=== PATIENT | male | born 1975 | race Caucasian/White ===

== ENCOUNTER 2018-03-16 18:49 | Inpatient (IN) | payer OTHER, MEDICAID ==
[~2018-03-16] VITALS: Ht 177.8 cm; Wt 103.0 kg
[2018-03-16 02:00] VITALS: BP 150/99
[2018-03-16 19:05] VITALS: BP 171/123
[2018-03-16] MEDS ORDERED: LEXAPRO20 MG PO (19:10)
[2018-03-16] MEDS ORDERED: PRINIVIL20 MG PO (19:10)
[2018-03-16] MEDS ORDERED: TRAZODONE HCL50 MG PO (19:10)
[2018-03-16] MEDS ORDERED: HYDROXYZINE HCL25 M1 PO (19:11)
[2018-03-16] MEDS ORDERED: OMEPRAZOLE20 M1 PO (19:11)
[2018-03-16] MEDS ORDERED: LIPITOR 20 MG T20 M1 PO (19:11)
[2018-03-16 19:44] LABS: ABSOLUTE BASOPHILS 0.1 thou/uL (0.0-0.2); ABSOLUTE EOSINOPHILS 0.1 thou/uL (0.0-0.7); ABSOLUTE LYMPHOCYTES 1.9 thou/uL (0.8-5.3); ABSOLUTE MONOCYTES 0.8 thou/uL (0.0-1.2); ABSOLUTE NEUTROPHILS 10.1 thou/uL (1.6-8.1); BASOPHILS 0.5 %; EOSINOPHILS 0.5 %; HEMATOCRIT 43.4 % (42.0-52.0); HEMOGLOBIN 15.4 gm/dL (14.0-18.0); LYMPHOCYTES 14.5 %; MCH 34.4 pg (26.0-34.0); MCHC 35.5 g/dL (28.0-37.0); MONOCYTES 6.2 %; MPV 8.3 fl. (7.2-11.1); NUCLEATED RBCS 0 /100WBC; PLATELET COUNT* 188 thou/uL (150-400); POLYS 78.3 %; RBC 4.48 mil/uL (4.50-6.00); RDW-CV 16.8 % (10.5-14.5); WBC 12.9 thou/uL (4.0-11.0)
[2018-03-16 19:51] LABS: CALCIUM 9.3 mg/dL (8.5-10.1); CREATININE 1.4 mg/dL (0.6-1.3)
[2018-03-16 19:52] LABS: POTASSIUM 2.3 mmol/L (3.5-5.1)
[2018-03-16 19:56] LABS: ALBUMIN 4.4 g/dL (3.4-5.0); TOTAL BILIRUBIN 0.7 mg/dL (<0.1-1.0); TOTAL PROTEIN 8.3 g/dL (6.4-8.2)
[2018-03-16 21:58] LABS: URINE COLOR YELLOW
[2018-03-16 21:59] LABS: URINE BILIRUBIN NEGATIVE (Negative); URINE BLOOD NEGATIVE (Negative); URINE CLARITY CLEAR; URINE GLUCOSE-RANDOM NEGATIVE (Negative); URINE KETONES NEGATIVE (Negative); URINE LEUKOCYTES NEGATIVE (Negative); URINE NITRITE NEGATIVE (Negative); URINE PROTEIN NEGATIVE (Negative); URINE UROBILINOGEN 0.2 E.U./dl (0.2-1.0)
[2018-03-16 22:31] VITALS: BP 174/109
[2018-03-16 23:00] VITALS: BP 146/103
[2018-03-17] VITALS (10 sets, daily range): BP systolic 130–162; BP diastolic 93–110
[2018-03-17 04:57] LABS: CALCIUM 8.7 mg/dL (8.5-10.1); MAGNESIUM 2.1 mg/dL (1.8-2.4)
[2018-03-17 05:19] LABS: POTASSIUM 2.8 mmol/L (3.5-5.1)
[2018-03-17] MEDS ORDERED: CATAPRES0.1 MG PO (09:46)
[2018-03-17] MEDS ORDERED: AMOX TR-K CLV1 EAC3 PO (09:46)
[2018-03-17] MEDS ORDERED: VITAMIN B-1100 M1 PO (09:46)
--- NOTE | 2018-03-17 19:34 | CON ---
[address] [address] CONSULTATION Name: KISHA BUSTOS III Room: [address] Giovany#: [id number] Admission: 03/16/18 Attend Phys: Saurabh Grover MD Discharge: Date of : 77 Report #: [id number] THIS REPORT FOR: //name// CC: [facility] physician/PCP Saurabh Grover DATE OF SERVICE: 03/17/2018 HISTORY OF PRESENT ILLNESS: This is a 43-year-old male patient who was evaluated by me for seizure. This patient was watching TV at about 9:00 p.m. when his son noticed that he had a grand mal seizure. He had some jerking movements of all 4 extremities and he was postictal after that. He did bite his tongue. He never had seizure before. He feels back to his baseline, but his blood pressure is still high. He was drinking about 1/2 bottle of vodka every day. He decided to detox himself. He was without alcohol for about 3 days when the seizure happened. He is having slight withdrawal, but feels more nervous. REVIEW OF SYSTEMS: Also indicate that he is not happy with his social situation. 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 He does have hypertension. His blood pressure is still running high. I carried out 14-point review of systems, otherwise it was noncontributory. He was having insomnia and he does have hypokalemia when he is here. PAST MEDICAL HISTORY: Negative for seizures. It is positive for significant hypokalemia. He also has liver dysfunction. His magnesium is normal. FAMILY HISTORY: Negative for early age stroke. SOCIAL HISTORY: He drinks alcohol in significant amount and smokes cigar. PHYSICAL EXAMINATION: Indicates he is alert, responsive, able to follow simple and complex commands. His speech, concentration, fund of knowledge and memory is at his baseline. His cranial nerve examination 2-12 looks unremarkable. His neuromuscular examination is unremarkable. He has a good strength, sensation, and reflexes. He is a well-built individual who does not have any dysmorphic features of eyes, ears and face. His vision and hearing is adequate. His blood pressure is 162/110, respirations 17, pulse is 82, temperature is 98.7. LABORATORY DATA: His white count is 12.9. His potassium is still 2.8. His CT scan of the head was unremarkable. IMPRESSION: Most likely alcohol withdrawal seizure. He is hypertensive. We need to exclude any other pathology [place] [address] CONSULTATION Name: LEONARD BUSTOSEdin Santamaria III Room: [address] MOc#: [id number] Admission: 03/16/18 Attend Phys: Saurabh Grover MD Discharge: Date of : 77 Report #: [id number] RECOMMENDATIONS: The patient was discussed with Dr. Grover. Plan is to get an MRI of the brain and EEG tomorrow, control his blood pressure and potassium tomorrow and instead of sending him home today we will send him home tomorrow. All of it was discussed with the patient and he is agreeable with the plan and will follow this plan. <ELECTRONICALLY SIGNED> By: Konstantin Nolasco MD 03/17/18 1934 1410 [id number] Nolasco MD /nt
[2018-03-18 04:00] VITALS: BP 151/100
[2018-03-18 08:17] VITALS: BP 145/97
[2018-03-18 11:14] LABS: ABSOLUTE EOSINOPHILS 0.1 thou/uL (0.0-0.7); ABSOLUTE LYMPHOCYTES 1.3 thou/uL (0.8-5.3); ABSOLUTE MONOCYTES 0.6 thou/uL (0.0-1.2); ABSOLUTE NEUTROPHILS 5.1 thou/uL (1.6-8.1); BASOPHILS 0.7 %; EOSINOPHILS 0.8 %; HEMATOCRIT 35.7 % (42.0-52.0); LYMPHOCYTES 18.6 %; MCH 34.8 pg (26.0-34.0); MCHC 35.1 g/dL (28.0-37.0); MCV 99.1 fL (80.0-100.0); MPV 8.3 fl. (7.2-11.1); NUCLEATED RBCS 0 /100WBC; PLATELET COUNT* 155 thou/uL (150-400); POLYS 71.9 %; RDW-CV 17.2 % (10.5-14.5); WBC 7.1 thou/uL (4.0-11.0)
[2018-03-18 11:26] LABS: CALCIUM 8.4 mg/dL (8.5-10.1); CREATININE 0.8 mg/dL (0.6-1.3); MAGNESIUM 1.7 mg/dL (1.8-2.4); PHOSPHORUS* 3.3 mg/dL (2.5-4.9); POTASSIUM 3.7 mmol/L (3.5-5.1)
[2018-03-18 11:30] LABS: HEMOGLOBIN 12.5 gm/dL (14.0-18.0)
[2018-03-18 12:00] VITALS: BP 167/112
[2018-03-18 16:00] VITALS: BP 180/113
[2018-03-18 20:00] VITALS: BP 154/101
[2018-03-19] VITALS (7 sets, daily range): BP systolic 143–183; BP diastolic 95–119
[2018-03-19] MEDS ORDERED: CHLORTHALIDONE25 MG PO (13:54)
[2018-03-19] MEDS ORDERED: NORVASC10 MG PO (13:54)
[2018-03-19] MEDS ORDERED: ZESTRIL40 MG PO (13:54)
[2018-03-19] MEDS ORDERED: PRENATAL PO (13:56)
[2018-03-19] MEDS ORDERED: MAGIC MOUTHWASH BLM SWISH&SPIT (13:56)
[2018-03-19] MEDS ORDERED: AUGMENTIN 500-1 EACH PO (13:57)
[2018-03-19] MEDS ORDERED: VITAMINC500 PO (14:55)
[2018-03-19] MEDS ORDERED: AZITHROMYCIN 2250 MG PO (14:56)
[2018-03-19] MEDS ORDERED: NEURONTIN600 MG PO (14:59)
[2018-03-19] MEDS ORDERED: COLACE100 MG PO (15:00)
[2018-03-19] MEDS ORDERED: CEFDINIR300 MG PO (15:02)
[2018-03-19] MEDS ORDERED: CHLORDIAZEPOXIDE5 M2 PO (15:58)
--- NOTE | 2018-03-20 10:04 | EEG ---
[address] [address] EEG STUDY REPORT Name: GIANNI BUSTOS III Room: [address]#: [id number] Admission: 03/18/18 Attend Phys: Saurabh Grover MD Discharge: 03/19/18 Date of : 77 Report #: [id number] THIS REPORT FOR: //name// CC: [facility] physician/PCP Saurabh Grover DATE OF SERVICE: 03/18/2018 This patient had an episode of seizure. EEG was done by placing the electrodes by standard 10-20 system of electrode placement. Both referential and sequential montages were used for recording. Background activity in this patient's EEG is about 11 Hz and 40 microvolt. The patient went to sleep and that was associated with bilaterally symmetrical sleep spindles and vertex sharp waves. Photic stimulation is unremarkable. Throughout the record no active epileptiform activity was noticed. IMPRESSION: This patient's electroencephalogram is within normal limits. Thank you very much for this referral. <ELECTRONICALLY SIGNED> By: Konstantin Nolasco MD 03/20/18 1004 1314 1320Konstantin Nolasco MD /nt
== END 2018-03-19 17:00 | disposition home or self-care (01) | DRG 682 ==
LOC: M.ERS 18:49 → M.TBA-ER 20:47 → M.2W 21:12
PROVIDERS: Family Medicine; Physician Assistant; ADMIT Internal Medicine
DX: N17.9 Acute kidney failure, unspecified (principal); G92 Toxic encephalopathy; F10.239 Alcohol dependence with withdrawal, unspecified; G40.509 Epileptic seizures related to external causes, not intractable, without status epilepticus; I16.0 Hypertensive urgency; E87.6 Hypokalemia; E78.5 Hyperlipidemia, unspecified; I12.9 Hypertensive chronic kidney disease with stage 1 through stage 4 chronic kidney disease, or unspecified chronic kidney disease; N18.2 Chronic kidney disease, stage 2 (mild); S01.512A Laceration without foreign body of oral cavity, initial encounter; K21.9 Gastro-esophageal reflux disease without esophagitis; F32.9 Major depressive disorder, single episode, unspecified; F41.9 Anxiety disorder, unspecified; X58.XXXA Exposure to other specified factors, initial encounter; Z90.49 Acquired absence of other specified parts of digestive tract; Z87.891 Personal history of nicotine dependence; Y93.89 Activity, other specified; Y92.89 Other specified places as the place of occurrence of the external cause; Y99.8 Other external cause status; Z79.899 Other long term (current) drug therapy